=== PATIENT | male | born 1990 | race Caucasian/White ===

== ENCOUNTER 2017-08-03 19:55 | Emergency (ER) | payer SELFPAY ==
[2017-08-03 20:02] VITALS: BP 114/65; BMI 28.4
[2017-08-03] MEDS ORDERED: ACETAMINOPHEN 325 MG TABLET (FP) PO ONE (21:06)
[2017-08-03] MEDS ORDERED: KETOROLAC TROMETHAMINE 60 MG/2 ML VIAL IM ONE (21:06)
[2017-08-03] MEDS ORDERED: ACETAMINOPHEN 325 MG TABLET (FP) ONE (21:09)
[2017-08-03] MEDS ORDERED: KETOROLAC TROMETHAMINE 60 MG/2 ML VIAL ONE (21:09)
--- NOTE | 2017-08-03 21:16 | PDOC ---
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 HISTORY OF PRESENT ILLNESS: The patient states 8 days ago he developed fever and left sided face swelling. The fever stopped after 2 days but facial swelling persisted. The patient states for the past 2 days he's had chills, left earache, runny nose, cough, vomiting and the left side of his face is still swollen. He is taking advil in the morning and advil at night with no relief. He was not vaccinated as a child and is concerned for mumps. Past History - Past Medical History Allergies/Adverse Reactions: Allergies Allergy/AdvReac Type Severity Reaction Status Date / Time No Known Allergies Allergy Verified 08/03/17 20:02 Home Medications: Ambulatory Orders NK [No Known Home Medication] 08/03/17 COPD: No - Immunization History Immunization Up to Date: Yes - Suicide/Smoking/Psychosocial Hx Smoking History: Never smoked Have you smoked in the past 12 months: No Information on smoking cessation initiated: No Hx Alcohol Use: No Drug/Substance Use Hx: No Substance Use Type: None Review of Systems - Review of Systems Able to Perform ROS?: Yes Constitutional: Yes: Chills, Fever. No: Night Sweats HEENTM: Yes: Ear Pain (left), Nose Congestion, Other (left facial swelling). No : Ear Discharge, Nose Pain, Throat Pain, Dental Problems, Difficulty Swallowing Respiratory: Yes: Cough. No: Shortness of Breath, Wheezing, Hemoptysis Cardiac (ROS): No: Chest Pain ABD/GI: Yes: Vomiting. No: Constipated, Diarrhea : No: Symptoms Reported Musculoskeletal: No: Symptoms Reported Neurological: Yes: Headache. No: Seizure, Ataxia *Physical Exam - Vital Signs Last Vital Signs Temp Pulse Resp BP Pulse Ox 99.1 F 92 H 16 114/65 100 08/03/17 19:59 08/03/17 19:59 08/03/17 19:59 08/03/17 19:59 04/29/18 19:59 - Physical Exam Comments: The patient is non toxic but ill appearing. General Appearance: Yes: Nourished, Appropriately Dressed. No: Apparent Distress HEENT: positive: EOMI, ARTI (eyes glassy), Nasal Congestion, Other (swelling below the angle of the mandible on the left side. No gingival swelling or broken teeth. No mastoid TTP b/l. ). 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 Plan is as follows: 1. PO tylenol 2. IM toradol 3. CT scan of soft tissues of neck CT scan soft tissues of neck IMPRESSION: Minimal, asymmetric prominence to the left parotid gland. Adjacent masseter muscle is also slightly prominent and asymmetric. No mass. Gave patient his results. Suggested tylenol and motrin for symptomatic relief and alternating warm and cold compresses to neck. Also suggested lemon drop candies to help with parotitis. Instructed him to return to the ER immediately with any worsening or concerning symptoms, including testicular swelling or pain. THe patient verbalizes understanding of all instructions, has no further questions and is awaiting discharge. *DC/Admit/Observation/Transfer Diagnosis at time of Disposition: Parotiditis Mumps Qualifiers: Mumps complication type: without complication Qualified Code(s): B26.9 - Mumps without complication - Discharge Dispostion Disposition: HOME Condition at time of disposition: Improved - Referrals - Patient Instructions Printed Discharge Instructions: DI for Mumps, DI for Parotitis-Adult Additional Instructions: Discharge Instructions: -You have the mumps and parotiditis; these illnesses will go away on their own in time -Take 650mg of over the counter tylenol for fever/chills -Take 600mg of ADvil every 6 hours with food for pain/body aches/headache -Suck on lemon candies to help release swelling to face -Apply ice to left side of face and neck to help with swelling. -return to the ER with any worsening or concerning symptoms, especially testicular swelling or pain Instrucciones de descarga: -Tienes las paperas y la parotiditis. estas enfermedades desaparecern por s solas a tiempo -Nadine 650 mg de Tylenol sin receta para la fiebre / escalofros - [place] 600 mg de ADvil cada 6 horas con alimentos para el dolor / dolor de cuerpo / dolor de bg -Ponga caramelos de limn para ayudar a liberar la hinchazn para enfrentar -Aplicar hielo en el lado abhishek de la beatrice y el elias para ayudar con la hinchazn. -Regresar a la jh de urgencias con cualquier empeoramiento o sntomas, especialmente hinchazn testicular o dolor - Post Discharge Activity
[2017-08-03 23:00] VITALS: PULSE 69; TEMP 98.9
[2017-08-03] MEDS ORDERED: LIDOCAINE 2.5%/PRILOCAINE 2.5% (5 Gram/TUBE) TP ONE (23:01)
== END 2017-08-03 23:00 | disposition home or self-care (01) ==
LOC: JERFT 19:55
PROC: 3E0233Z Introduction of Anti-inflammatory into Muscle, Percutaneous Approach (ICD-10-PCS; principal; 2017-08-03)
DX: B26.9 Mumps without complication (principal)
CPT/HCPCS: 36415; 70490-TC; 86735; 99281-25